=== PATIENT | male | born 1965 | race American Indian/Alaskan Native ===

== ENCOUNTER 2020-08-06 14:08 | Emergency (ER) | payer MEDICAID ==
[2020-08-06 18:49] VITALS: BP 132/82
--- NOTE | 2020-08-06 22:46 | Emergency Department Report ---
ED General Adult HPI - General Chief complaint: Extremity Injury, Upper Stated complaint: ARM PAIN Time Seen by Provider: 08/06/20 19:59 Source: patient Mode of arrival: Ambulatory Limitations: No Limitations - History of Present Illness Initial comments: 55-year-old -[place] male this emerged part planing of a 1 year history of progressively worsening pain to the upper extremity which worsens with movement and palpation. Also reports a progressively worsening tremor of an unknown etiology. Follow-up with his primary care provider a couple weeks ago who made some adjustments in his medications but symptoms have not improved. 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 No blurred vision no headache no chest pain no shortness of breath no palpitations no temperature intolerance tolerances. -: Gradual Quality: dull Consistency: constant Improves with: none Associated Symptoms: denies other symptoms Treatments Prior to Arrival: none - Related Data Previous Rx's Medication Instructions Recorded Last Taken Type Ketorolac [Toradol] 10 mg PO Q6H PRN #10 tablet 08/06/20 Unknown Rx Allergies Allergy/AdvReac Type Severity Reaction Status Date / Time No Known Allergies Allergy Unverified 08/06/20 15:14 ED Review of Systems ROS: Stated complaint: ARM PAIN Other details as noted in HPI Comment: All other systems reviewed and negative ED Past Medical Hx - Past Medical History Previous Medical History?: No - Surgical History Past Surgical History?: No - Medications Home Medications: Home Medications Medication Instructions Recorded Confirmed Last Taken Type Ketorolac [Toradol] 10 mg PO Q6H PRN #10 tablet 08/06/20 Unknown Rx ED Physical Exam - General Limitations: No Limitations General appearance: alert, in no apparent distress - Head Head exam: Present: atraumatic, normocephalic - Eye Eye exam: Present: normal appearance - ENT ENT exam: Present: mucous membranes moist - Neck Neck exam: Present: normal inspection - Respiratory Respiratory exam: Present: normal lung sounds bilaterally. Absent: respiratory distress - Cardiovascular Cardiovascular Exam: Present: regular rate, normal rhythm. Absent: systolic murmur, diastolic murmur, rubs, gallop - GI/Abdominal GI/Abdominal exam: Present: soft, normal bowel sounds - Rectal Rectal exam: Present: deferred - Extremities Exam Extremities exam: Present: normal inspection, tenderness (Tenderness to his biceps bilaterally. No swelling no edema no abrasions no cellulitis. Full shoulder does have full range of motion. Some weakness when reaching overhead. His his construction project mgr strength is 3 of 5 bilaterally pulses 2+ capillary refills are in place.) - Back Exam Back exam: Present: normal inspection. Absent: CVA tenderness (R), CVA tenderness (L) - Neurological Exam Neurological exam: Present: alert, oriented X3, normal gait, other (Has a resting tremor bilateral) - Psychiatric Psychiatric exam: Present: normal affect, normal mood - Skin Skin exam: Present: warm, dry, intact, normal color. Absent: rash ED Course Vital Signs 08/06/20 15:16 Temperature 98.5 F Pulse Rate 67 Respiratory 20 Rate Blood Pressure 132/82 O2 Sat by Pulse 97 Oximetry ED Medical Decision Making - Medical Decision Making 55-year-old -[place] male with a current chronic progressive musculoskeletal issue involving his upper extremities associated with a tremor may be medication related may be from a neurological origin as well as advised him on the need to follow-up with neurology for evaluation of this condition and with his primary care doctor to continue with his medication adjustments. His present time no urgent or emergent condition is present although his current baseline is not that of normal. I discussed with him the need to follow-up he did express an understanding he did request anti-inflammatories or muscle relaxers to help with his aches and pains Critical care attestation.: If time is entered above; I have spent that time in minutes in the direct care of this critically ill patient, excluding procedure time. ED Disposition Clinical Impression: Chronic musculoskeletal pain, Resting tremor Disposition: -01 TO HOME OR SELFCARE Is pt being admited?: No Does the pt Need Aspirin: No Condition: Stable Instructions: Chronic Pain (ED), Musculoskeletal Pain (ED) Additional Instructions: Please see report your primary care provider for reevaluation of your chronic pain also consult with with neurology as your resting tremor and decreasing construction project mgr strength may also have a chronic neurological/demyelinating cause as well. Unsure about your status as as a ghost with Parkinson's but given your age other causes may be more pertinent. This issue has been consistently worsening over the last year at this present time no emergent causes at present. Prescriptions: Ketorolac [Toradol] 10 mg PO Q6H PRN #10 tablet PRN Reason: Pain Referrals: PRIMARY CARE, [Primary Care Provider] - 3-5 Days MELY FLYNN MD [Staff Physician] - 3-5 Days [facility] [Provider Group] - 3-5 Days SUNIL GONZALEZ MD [Staff Physician] - 3-5 Days LOUISE MARTINEZ MD [Staff] - 3-5 Days
== END 2020-08-06 22:40 | disposition home or self-care (01) ==
LOC: ED 14:08
DX: M79.18 Myalgia, other site (principal); G89.29 Other chronic pain
CPT/HCPCS: 99282